=== PATIENT | male | born 1955 | race Caucasian/White ===

== ENCOUNTER 2016-06-02 00:32 | Emergency (ER) | payer SELFPAY ==
[~2016-06-02] VITALS: Ht 182.9 cm; Wt 97.7 kg
[2016-06-02] MEDS ORDERED: SODIUM CHLORIDE 0.9% 1,000 ML IV ONE (01:11)
[2016-06-02] MEDS ORDERED: SODIUM CHLORIDE FLUSH 10ML SYR IVF ONE (01:30)
[2016-06-02 01:31] LABS: HEMOGLOBIN 14.6 g/dL (13.7-18.0)
[2016-06-02 01:41] LABS: BLOOD UREA NITROGEN 12 mg/dL (7-18)
[2016-06-02] MEDS ORDERED: SULFAMETH./TRIMETHOPRIM DS 800MG/160MG TABLET ONE (02:43)
[2016-06-02] MEDS ORDERED: CEFTRIAXONE 1,000 MG ONE (02:43)
[2016-06-02] MEDS ORDERED: SULFAMETH./TRIMETHOPRIM DS 800MG/160MG TABLET PO ONE (03:00)
[2016-06-02] MEDS ORDERED: CEFTRIAXONE PMX 1GM/50ML 50 ML IV ONE (03:00)
[2016-06-02 03:01] VITALS: BP 120/79
== END 2016-06-02 03:03 | disposition home or self-care (01) ==
LOC: ED 02:35
DX: L03.031 Cellulitis of right toe (principal); E11.65 Type 2 diabetes mellitus with hyperglycemia
CPT/HCPCS: 36415; 73660; 80048; 82010; 82040; 85025; 96372; 99285; J0696

== ENCOUNTER 2016-08-08 22:34 | Emergency (ER) | payer SELFPAY ==
[~2016-08-08] VITALS: Ht 182.9 cm; Wt 99.3 kg
[2016-08-08 22:38] VITALS: BP 138/81
== END 2016-08-09 07:08 | disposition home or self-care (01) ==
LOC: ED 23:55
DX: L03.115 Cellulitis of right lower limb (principal); I25.2 Old myocardial infarction
CPT/HCPCS: 99283